=== PATIENT | male | born 1965 | race Hispanic/Latino ===

== ENCOUNTER 2025-06-26 06:50 | Day surgery (SDC) | payer MEDICARE ==
[2025-06-23 15:41] LABS: BASOPHILS % 0.9 % (0.0-1.0); EOSINOPHILS % 5.2 % (0.0-6.0); LYMPHOCYTES % 29.1 % (18.0-39.1); MONOCYTES % 9.1 % (4.4-11.3); NEUTROPHILS % 55.5 % (38.7-80.0); RED CELL DISTRIBUTION WIDTH 14.8 % (11.7-14.4)
[2025-06-23 16:17] LABS: INR 0.92
[2025-06-23 16:25] LABS: CHOL/HDL RATIO 2.1 (3.9-4.7); EST GLOMERULAR FILTRATION RATE 5.0 ML/MIN (>=60); LDL CHOLESTEROL 40.0 MG/DL (60-130)
[2025-06-26] VITALS (16 sets, daily range): BP systolic 157–199; BP diastolic 59–80; PULSE 61–76; RESP 9–16; TEMP 96.8–97.8; O2SAT 98–100
[~2025-06-26] VITALS: Ht 172.7 cm; Wt 70.6 kg
[~2025-06-26 06:50] MED LIST: DIALYVITE TABL1 EACH; LASIX80 MG PO; NEURONTIN300 MG PO; PANTOPRAZOLE SO40 MG PO; RENVELA800 MG PO; ROSUVASTATIN CAL5 MG PO; SODIUM BICARBO650 MG PO; VITAMIN D31 ML
[2025-06-26] MEDS ORDERED: HEPARIN SOD (PORCINE) 1000 UNIT/ML 30ML ONE (09:10)
[2025-06-26] MEDS ORDERED: VERAPAMIL HCL 2.5 MG/ML 2 ML VIAL ONE ×2 (09:10→10:43)
[2025-06-26] MEDS ORDERED: FENTANYL CITRATE/PF 100MCG/2 ML INJ ONE (09:11)
[2025-06-26] MEDS ORDERED: MIDAZOLAM HCL 2 MG/2 ML VIAL ONE (09:11)
[2025-06-26] MEDS ORDERED: LIDOCAINE HCL 2% LOCAL 20 ML VIAL ONE (09:11)
[2025-06-26] MEDS ORDERED: SODIUM CHLORIDE 0.9% 1000ML 1,000 ML ONE ×2 (09:12→10:39)
[2025-06-26] MEDS ORDERED: NITROGLYCERIN/D5W 200 MCG/ML 250 ML ONE (09:12)
[2025-06-26] MEDS ORDERED: IOPAMIDOL 370 MG/ML 100 ML INFUS..BTL INJ ONE (09:12)
[2025-06-26] MEDS ORDERED: HEPARIN SOD/SOD CHLORIDE 2,000 ML ONE (09:12)
[2025-06-26] MEDS ORDERED: ADENOSINE 3MG/1ML 30ML VIAL ONE (10:17)
[2025-06-26] MEDS ORDERED: ASPIRIN 325 MG TAB ONE (11:10)
[2025-06-26] MEDS ORDERED: CLOPIDOGREL BISULFATE 75 MG TAB ONE (11:11)
== END 2025-06-26 16:07 | disposition home or self-care (01) ==
LOC: CATH LAB 06:50
PROVIDERS: ATTEND Internal Medicine Cardiovascular Disease
DX: I25.110 Atherosclerotic heart disease of native coronary artery with unstable angina pectoris (principal); E78.5 Hyperlipidemia, unspecified; E11.22 Type 2 diabetes mellitus with diabetic chronic kidney disease; I12.0 Hypertensive chronic kidney disease with stage 5 chronic kidney disease or end stage renal disease; N18.6 End stage renal disease; Z99.2 Dependence on renal dialysis; Z01.810 Encounter for preprocedural cardiovascular examination; Z01.812 Encounter for preprocedural laboratory examination; Z01.818 Encounter for other preprocedural examination; Z79.899 Other long term (current) drug therapy; Z82.49 Family history of ischemic heart disease and other diseases of the circulatory system
CPT/HCPCS: 93571; C9602; 36415; 71046; 76937; 80048; 80061; 82948; 85025; 85610; 85730; 92920; 92928; 93005; 93458; 99152; 99153; C1724; C1760; C1769; C1887; J0153; J1644; J2003; J2250; J7030; Q9967